=== PATIENT | male | born 1945 | race Caucasian/White ===

== ENCOUNTER 2016-10-09 00:55 | Emergency (ER) | payer BC, MEDICARE ==
[~2016-10-09 00:55] MED LIST: /GLIM2TA; ACTO15TA; ALTA10CA; ALTA1CAP4 PO; ASPI1TAB PO; ASPI325T; ATOR40TA75 PO; BYST10TA2 PO; BYSTOLIC; CALC500C16 PO; CLOP75TA2 PO; DILT240C PO; FISH1000 PO; GLIM2TA PO; GLUC1000; INSUH10VL SC; INSULADS SC; METF500T13 PO; PRIL40CA PO; SIMV40TA2 PO; SIMV80TA; SUCR1SS PO; VITMTA PO; [UNRECOGNIZED DRUG - OTHER]
[2016-10-09 01:44] LABS: BASO % 0.4 % (0.0-1.0); EOS # 0.3 K/mm3 (0.0-0.50); LARGE UNSTAINED CELL # 0.2 K/mm3 (0.0-0.4); LARGE UNSTAINED CELL % 2.1 % (0.0-4.0); LYMPH # 1.8 K/mm3 (1.5-4.5); LYMPH % 23.6 % (24.0-44.0); MEAN CORPUSCULAR HEMOGLOBIN 32.2 pg (27.0-33.0); MEAN CORPUSCULAR HGB CONC 34.8 g/dl (32.0-36.5); MEAN CORPUSCULAR VOLUME 92.6 fl (80.0-96.0); MONO # 0.5 K/mm3 (0.0-0.8); MONO % 6.9 % (0.0-5.0); NEUTROPHILS # 4.7 K/mm3 (1.8-7.7); NEUTROPHILS % 63.1 % (36.0-66.0); PLATELET COUNT, AUTOMATED 224 k/mm3 (150-450); RED CELL DISTRIBUTION WIDTH 13.6 % (11.5-14.5); WHITE BLOOD COUNT 7.4 K/mm3 (4.0-10.0)
[2016-10-09 01:53] LABS: INR 0.91
--- NOTE | 2016-10-09 02:03 | REP ---
Clinical: Chest pain . Comparison: 12/27/2014 . Findings: The mediastinum and cardiac silhouette are stable and within normal limits for portable technique. The lung [place] are clear without acute consolidation, effusion, or pneumothorax. Skeletal structures are intact. Impression: No acute cardiopulmonary process appreciated. Signed by Juan Carpenter MD 10/09/2016 01:54 A
[2016-10-09 02:10] LABS: ALBUMIN 3.4 GM/DL (3.2-5.2); ALBUMIN/GLOBULIN RATIO 0.92 (1.00-1.93); ALKALINE PHOSPHATASE 56 U/L (45-117); ALT/SGPT 29 U/L (12-78); ANION GAP 8 MEQ/L (8-16); BILIRUBIN,DIRECT 0.1 MG/DL (0.0-0.2); BILIRUBIN,TOTAL 0.5 MG/DL (0.2-1.0); BLOOD UREA NITROGEN 22 MG/DL (7-18); CALCIUM LEVEL 8.9 MG/DL (8.8-10.2); CARBON DIOXIDE LEVEL 25 MEQ/L (21-32); CHLORIDE LEVEL 107 MEQ/L (98-107); CREATININE FOR GFR 1.21 MG/DL (0.70-1.30); GLOMERULAR FILTRATION RATE > 60.0 (>42); GLUCOSE, FASTING 213 MG/DL (83-110); POTASSIUM SERUM 4.1 MEQ/L (3.5-5.1); SODIUM LEVEL 140 MEQ/L (136-145); TOTAL PROTEIN 7.1 GM/DL (6.4-8.2)
[2016-10-09 02:42] LABS: AST/SGOT 13 U/L (15-37)
[2016-10-09] MEDS ORDERED: ASPIRIN 325 MG TAB PO ONE (02:45)
[2016-10-09 05:41] VITALS: BP 168/74
[2016-10-09] MEDS ORDERED: ASPI81TA85 PO (06:24)
--- NOTE | 2016-10-09 11:25 | ECGEPIP ---
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
--- NOTE | 2016-10-09 11:27 | ECGEPIP ---
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
[2016-10-24] MEDS ORDERED: CART240C3 PO (10:30)
[2016-10-24] MEDS ORDERED: OMEP40CA2 PO (10:30)
[2016-10-24] MEDS ORDERED: ASPI81TA18 PO (10:30)
[2016-10-24] MEDS ORDERED: CLOP75TA2 PO (10:30)
== END 2016-10-09 06:39 | disposition home or self-care (01) ==
LOC: M ED 00:55
DX: R07.89 Other chest pain (principal); I25.10 Atherosclerotic heart disease of native coronary artery without angina pectoris; E11.9 Type 2 diabetes mellitus without complications; I10 Essential (primary) hypertension; E78.5 Hyperlipidemia, unspecified; K21.9 Gastro-esophageal reflux disease without esophagitis; Z95.1 Presence of aortocoronary bypass graft; Z98.61 Coronary angioplasty status; Z87.891 Personal history of nicotine dependence; Z79.82 Long term (current) use of aspirin; Z79.899 Other long term (current) drug therapy; Z79.84 Long term (current) use of oral hypoglycemic drugs; Z79.4 Long term (current) use of insulin

== ENCOUNTER 2016-10-21 10:52 | Emergency (ER) | payer BC, MEDICARE ==
[~2016-10-21] VITALS: Ht 175.3 cm; Wt 87.9 kg
[~2016-10-21 10:52] MED LIST changes: +ASPI81TA85 PO
[2016-10-21 10:53] VITALS: BP 151/67
[2016-10-21] MEDS ORDERED: TRES1INJ SC (11:01)
[2016-10-21] MEDS ORDERED: CEPHALEXIN 500 MG CAP PO ONE (11:15)
[2016-10-21] MEDS ORDERED: cefTRIAXone SOD 1 GM VIAL (J0696) IM ONE (11:15)
[2016-10-21] MEDS ORDERED: ADACEL/BOOSTRIX VACCINE (DIPHTH/PERTUSS/ACELL/TETANUS)0.5ML SYR (90715) IM ONE (11:15)
[2016-10-21] MEDS ORDERED: LIDOCAINE 1% MDV 20ML VIAL As Ordered ONE (11:21)
[2016-10-21] MEDS ORDERED: BACITRACIN OINT 30GM TOP ONE (11:30)
[2016-10-21] MEDS ORDERED: AUGM875T28 PO (11:32)
[2016-10-24] MEDS ORDERED: ASPI81TA18 PO (10:30)
[2016-10-24] MEDS ORDERED: OMEP40CA2 PO (10:30)
[2016-10-24] MEDS ORDERED: CART240C3 PO (10:30)
[2016-10-24] MEDS ORDERED: CLOP75TA2 PO (10:30)
== END 2016-10-21 12:39 | disposition home or self-care (01) ==
LOC: M ED 10:52
DX: S81.831A Puncture wound without foreign body, right lower leg, initial encounter (principal); S81.832A Puncture wound without foreign body, left lower leg, initial encounter; S31.139A Puncture wound of abdominal wall without foreign body, unspecified quadrant without penetration into peritoneal cavity, initial encounter; S80.11XA Contusion of right lower leg, initial encounter; S80.811A Abrasion, right lower leg, initial encounter; S80.812A Abrasion, left lower leg, initial encounter; S81.851A Open bite, right lower leg, initial encounter; S81.852A Open bite, left lower leg, initial encounter; W55.01XA Bitten by cat, initial encounter; Y92.099 Unspecified place in other non-institutional residence as the place of occurrence of the external cause; Y93.9 Activity, unspecified; Y99.9 Unspecified external cause status; E11.9 Type 2 diabetes mellitus without complications; I10 Essential (primary) hypertension; Z87.891 Personal history of nicotine dependence; Z79.02 Long term (current) use of antithrombotics/antiplatelets; Z79.82 Long term (current) use of aspirin; Z79.4 Long term (current) use of insulin; Z79.899 Other long term (current) drug therapy
CPT/HCPCS: 90471; 90715; 96372; 99282; J0696

== ENCOUNTER 2016-10-27 09:23 | Day surgery (SDC) | payer BC ==
[~2016-10-27] VITALS: Ht 175.3 cm; Wt 89.8 kg
[~2016-10-27 09:23] MED LIST changes: +ACETAMINOPHEN 325 MG TAB PO PRN; +ASPI81TA18 PO; +AUGM875T28 PO; +BSS with VANC/TOB/EPI for EYE CASES IR ONE; +CART240C3 PO; +CYCLOPENTOLATE 2% OPHTH SOLN 2ML BTL OD ONE; +HEALON DUET (HEALON 10MG/ML 0.55ML & HEALON ENDOCOAT 30MG/ML 0.85ML) As Ordered ONE; +LIDOCAINE 1% SDV 5 ML VIAL As Ordered ONE; +LIDOCAINE 3.5 % 1ML OPHTH TOPICAL GEL OU ONE; +MIDAZOLAM INJ 2 MG/2 ML VIAL (J2250) As Ordered ONE; +MOXIFLOXACIN IN BSS 0.25MG/0.25ML INTRACAMERAL INJ (OR EYE ONLY)(J2280) As Ordered ONE; +OFLOXACIN 0.3 % (OCUFLOX) OPTH SOL 5ML OD ONE; +OMEP40CA2 PO; +PHENYLEPHRINE 2.5% OPHTH SOL 2ML OD ONE; +POVIDONE-IODINE 5% OPHTH PREP SOL 30ML As Ordered ONE; +PROPARACAINE 0.5% OPHTH SOL 15ML OD PRN; +TRES1INJ SC; +TRIAMCINOLONE PRES FR 40 MG/ML 1ML(TRIESENCE)(OR EYE ONLY)(J3300 PER 1MG) As Ordered ONE; +TROPICAMIDE 1% OPHTH SOLN 2ML OD ONE
[2016-10-27] MEDS ORDERED: D5W/0.2% SODIUM CHLORIDE 250 ML IV ONE (09:45)
[2016-10-27] MEDS ORDERED: ASPIRIN 81 MG CHEW TABLET As Ordered ONE (10:07)
[2016-10-27] MEDS ORDERED: ASPIRIN 81 MG CHEW TABLET PO ONE (10:15)
[2016-10-27 12:25] VITALS: BP 143/65
[2016-10-27] MEDS ORDERED: TRIMETHOBENZAMIDE 300 MG CAP PO PRN (12:30)
[2016-10-27] MEDS ORDERED: AcetaZOLAMIDE 500 MG ER CAP PO ONE (12:30)
[2016-10-27] MEDS ORDERED: KETOROLAC 0.5% OPHTH SOLN OD ONE (12:30)
== END 2016-10-27 12:45 | disposition home or self-care (01) ==
LOC: M SDC 09:23
PROVIDERS: ATTEND Ophthalmology
DX: H25.11 Age-related nuclear cataract, right eye (principal); I25.10 Atherosclerotic heart disease of native coronary artery without angina pectoris; E11.9 Type 2 diabetes mellitus without complications; Z79.4 Long term (current) use of insulin; K21.9 Gastro-esophageal reflux disease without esophagitis; Z79.82 Long term (current) use of aspirin; Z79.899 Other long term (current) drug therapy; Z87.891 Personal history of nicotine dependence
CPT/HCPCS: 66984; J2250; J2280; J3300

== ENCOUNTER 2016-12-03 06:29 | Day surgery (SDC) | payer BC ==
[~2016-12-03] VITALS: Ht 175.3 cm; Wt 88.5 kg
[~2016-12-03 06:29] MED LIST changes: -ACETAMINOPHEN 325 MG TAB PO PRN; -BSS with VANC/TOB/EPI for EYE CASES IR ONE; -CYCLOPENTOLATE 2% OPHTH SOLN 2ML BTL OD ONE; -HEALON DUET (HEALON 10MG/ML 0.55ML & HEALON ENDOCOAT 30MG/ML 0.85ML) As Ordered ONE; -LIDOCAINE 1% SDV 5 ML VIAL As Ordered ONE; -LIDOCAINE 3.5 % 1ML OPHTH TOPICAL GEL OU ONE; -MIDAZOLAM INJ 2 MG/2 ML VIAL (J2250) As Ordered ONE; -MOXIFLOXACIN IN BSS 0.25MG/0.25ML INTRACAMERAL INJ (OR EYE ONLY)(J2280) As Ordered ONE; -OFLOXACIN 0.3 % (OCUFLOX) OPTH SOL 5ML OD ONE; -PHENYLEPHRINE 2.5% OPHTH SOL 2ML OD ONE; -POVIDONE-IODINE 5% OPHTH PREP SOL 30ML As Ordered ONE; -PROPARACAINE 0.5% OPHTH SOL 15ML OD PRN; -TRIAMCINOLONE PRES FR 40 MG/ML 1ML(TRIESENCE)(OR EYE ONLY)(J3300 PER 1MG) As Ordered ONE; -TROPICAMIDE 1% OPHTH SOLN 2ML OD ONE
[2016-12-03] MEDS ORDERED: TRIAMCINOLONE PRES FR 40 MG/ML 1ML(TRIESENCE)(OR EYE ONLY)(J3300 PER 1MG) As Ordered ONE (06:38)
[2016-12-03] MEDS ORDERED: POVIDONE-IODINE 5% OPHTH PREP SOL 30ML As Ordered ONE (06:38)
[2016-12-03] MEDS ORDERED: MOXIFLOXACIN IN BSS 0.25MG/0.25ML INTRACAMERAL INJ (OR EYE ONLY)(J2280) As Ordered ONE (06:39)
[2016-12-03] MEDS ORDERED: HEALON DUET (HEALON 10MG/ML 0.55ML & HEALON ENDOCOAT 30MG/ML 0.85ML) As Ordered ONE (06:39)
[2016-12-03] MEDS ORDERED: LIDOCAINE 1% SDV 5 ML VIAL As Ordered ONE (06:39)
[2016-12-03] MEDS ORDERED: LR 500 ML IV ONE (06:45)
[2016-12-03] MEDS ORDERED: LIDOCAINE 2% W/EPIN INJ 20ML **PRES FREE As Ordered ONE (06:59)
[2016-12-03] MEDS ORDERED: OFLOXACIN 0.3 % (OCUFLOX) OPTH SOL 5ML XX ONE (07:00)
[2016-12-03] MEDS ORDERED: CYCLOPENTOLATE 2% OPHTH SOLN 2ML BTL XX ONE (07:00)
[2016-12-03] MEDS ORDERED: TROPICAMIDE 1% OPHTH SOLN 2ML XX ONE (07:00)
[2016-12-03] MEDS ORDERED: BSS with VANC/TOB/EPI for EYE CASES IR ONE (07:00)
[2016-12-03] MEDS ORDERED: PHENYLEPHRINE 2.5% OPHTH SOL 2ML XX ONE (07:00)
[2016-12-03] MEDS ORDERED: LIDOCAINE 3.5 % 1ML OPHTH TOPICAL GEL OU ONE (07:00)
[2016-12-03] MEDS ORDERED: fentaNYL 100 MCG/2 ML INJECTION (J3010) As Ordered ONE (07:08)
[2016-12-03] MEDS ORDERED: MIDAZOLAM INJ 2 MG/2 ML VIAL (J2250) As Ordered ONE (07:08)
[2016-12-03 08:15] VITALS: BP 136/62
== END 2016-12-03 08:25 | disposition home or self-care (01) ==
LOC: M SDC 06:29
PROVIDERS: ATTEND Ophthalmology
DX: H25.9 Unspecified age-related cataract (principal); I25.10 Atherosclerotic heart disease of native coronary artery without angina pectoris; I25.2 Old myocardial infarction; E10.9 Type 1 diabetes mellitus without complications; Z79.4 Long term (current) use of insulin; Z79.82 Long term (current) use of aspirin; I10 Essential (primary) hypertension; E78.5 Hyperlipidemia, unspecified; K21.9 Gastro-esophageal reflux disease without esophagitis; Z79.899 Other long term (current) drug therapy
CPT/HCPCS: 66984; J2250; J2280; J3010; J3300

== ENCOUNTER → 2017-12-25 | Outpatient (CLI) | payer BC | LOC: M RAD 16:24 | DX: I65.23 Occlusion and stenosis of bilateral carotid arteries (principal); R09.89 Other specified symptoms and signs involving the circulatory and respiratory systems | CPT/HCPCS: 93880 ==

== ENCOUNTER → 2018-03-10 | Outpatient (CLI) | payer BC ==
[~2018-03-10] MED LIST changes: -ASPI81TA18 PO; +ASPI81TA52 PO; -DILT240C PO; +DILT240C47 PO; +PROHANCE 279.3MG/ML 15ML VIAL (A9576) As Ordered ONE; +PROHANCE 279.3MG/ML 5ML VIAL (A9576) As Ordered ONE
--- NOTE | 2018-03-10 14:56 | REP ---
MR ANGIOGRAPHY OF THE CAROTIDS WITHOUT AND WITH IV GADOLINIUM: HISTORY: Carotid stenosis. Carotid sonography December 25, 2017 showed approximately 70% narrowing on the left and less than 50% narrowing on the right. TECHNIQUE: 3D [id number] and 2D postcontrast MR angiography acquired. Maximal intensity projection images and source images are reviewed. MRA ANGIOGRAPHY FINDINGS: The left vertebral artery appears to take a direct aortic origin although it is very proximal most segment is not well seen. I cannot exclude an origin stenosis for the left vertebral artery. Great vessel origins are otherwise unremarkable. The vertebral arteries are patent in their cervical segments and symmetric. The common carotid arteries are unremarkable bilaterally. There is bilateral carotid bulb plaquing. There is less than 50% narrowing of the proximal ICA on the right. There is more impressive proximal ICA narrowing on the left, with an elongate segment of narrowing 50-75%. The distal ICA is unremarkable on both sides. IMPRESSION: Up to 75% narrowing in the proximal ICA on the left with an elongate narrowed ICA segment on the left. Less than 50% narrowing of the ICA on the right. The proximal vertebral on the left may take a direct aortic origin. This segment of the left vertebral artery is not well seen and I cannot exclude an origin stenosis for the left vertebral artery. Electronically Signed by Huey Delgado MD 03/10/2018 03:14 P
== END ==
LOC: M RAD 13:18
PROVIDERS: ATTEND Physician Assistant Medical
DX: I65.23 Occlusion and stenosis of bilateral carotid arteries (principal)
CPT/HCPCS: 70549; A9576

== ENCOUNTER 2022-11-12 20:31 | Emergency (ER) | payer BC, MEDICARE, OTHER ==
[~2022-11-12] VITALS: Ht 175.3 cm; Wt 90.9 kg
[~2022-11-12 20:31] MED LIST changes: -/GLIM2TA; +AMAR1TAB5; -ASPI1TAB PO; +ASPI81TA26 PO; -ASPI81TA85 PO; +ASPI81TA86 PO; -GLIM2TA PO; +GLIM2TAB29 PO; -OMEP40CA2 PO; +OMEP40CA4 PO; -PROHANCE 279.3MG/ML 15ML VIAL (A9576) As Ordered ONE; -PROHANCE 279.3MG/ML 5ML VIAL (A9576) As Ordered ONE; -SIMV40TA2 PO; +SIMV40TA20 PO
[2022-11-12] MEDS ORDERED: ASPIRIN 81MG CHEW TABLET PO ONE (21:00)
[2022-11-12] MEDS ORDERED: NITROGLYCERIN 0.4MG SUBL TABLET SL PRN (21:00)
[2022-11-12 21:31] LABS: CK-MB VALUE MASS 6.1 NG/ML (<3.6)
[2022-11-12 21:32] LABS: BLOOD UREA NITROGEN 41 MG/DL (9-23); CARBON DIOXIDE LEVEL 19 MMOL/L (20-31); CHLORIDE LEVEL 101 MMOL/L (98-107); CREATININE FOR GFR 1.23 MG/DL (0.70-1.30); GLOMERULAR FILTRATION RATE > 60.0 (>42); GLUCOSE, FASTING 192 MG/DL (74-106); POTASSIUM SERUM 4.4 MMOL/L (3.5-5.1); SODIUM LEVEL 134 MMOL/L (136-145)
[2022-11-12 21:35] LABS: CPK CREATINE PHOSPHOKINASE 187 U/L (46-171); MB/CK RELATIVE INDEX 3.26 (< OR =4)
[2022-11-12 21:47] LABS: BASO % 0.1 % (0.0-1.0); EOS % 0.1 % (0.0-3.0); HEMATOCRIT 37.1 % (42.0-52.0); HEMOGLOBIN 12.6 g/dl (13.5-17.5); LYMPH # 1.2 10^3/uL (1.5-5.0); MEAN CORPUSCULAR HEMOGLOBIN 31.6 pg (27.0-33.0); MONO % 5.1 % (2.0-8.0); NEUTROPHILS # 17.7 10^3/uL (1.5-8.5); NEUTROPHILS % 88.1 % (36.0-66.0); PLATELET COUNT, AUTOMATED 332 10^3/uL (150-450); RED BLOOD COUNT 3.99 10^6/uL (4.30-6.10); WHITE BLOOD COUNT 20.1 10^3/uL (4.0-10.0)
[2022-11-12] MEDS ORDERED: HEPARIN DRIP 25,000 UNITS in IV 1 EA IV SCH (22:00)
[2022-11-12] MEDS ORDERED: HEPARIN SOD (PORCINE) 5000UNITS/ML 1ML VIAL/SYRINGE IV ONE (22:00)
[2022-11-12 22:14] LABS: CK-MB VALUE MASS 6.3 NG/ML (<3.6)
[2022-11-12 22:24] LABS: MB/CK RELATIVE INDEX 3.46 (< OR =4)
[2022-11-12 22:29] LABS: RSV AMPLIFICATION NEGATIVE (NEGATIVE)
[2022-11-12 22:31] VITALS: BP 164/74; TEMP 98; O2SAT 96
== END 2022-11-12 22:55 | disposition short-term general hospital (02) ==
LOC: M ED 20:31
DX: I21.3 ST elevation (STEMI) myocardial infarction of unspecified site (principal); I25.10 Atherosclerotic heart disease of native coronary artery without angina pectoris; E11.9 Type 2 diabetes mellitus without complications; I10 Essential (primary) hypertension; E78.5 Hyperlipidemia, unspecified; Z95.5 Presence of coronary angioplasty implant and graft; Z79.4 Long term (current) use of insulin; Z79.82 Long term (current) use of aspirin; Z79.899 Other long term (current) drug therapy

== ENCOUNTER 2022-12-01 12:13 | Emergency (ER) | payer MEDICARE, OTHER ==
[~2022-12-01] VITALS: Ht 175.3 cm; Wt 77.3 kg
[2022-12-01 12:15] VITALS: TEMP 97.5
[2022-12-01 14:04] LABS: BASO % 0.2 % (0.0-1.0); EOS # 0.5 10^3/uL (0.0-0.5); EOS % 4.3 % (0.0-3.0); HEMATOCRIT 31.6 % (42.0-52.0); HEMOGLOBIN 10.7 g/dl (13.5-17.5); LYMPH # 0.8 10^3/uL (1.5-5.0); LYMPH % 6.6 % (24.0-44.0); MEAN CORPUSCULAR HGB CONC 33.9 g/dl (32.0-36.5); MEAN CORPUSCULAR VOLUME 94.6 fl (80.0-96.0); MONO # 0.8 10^3/uL (0.0-0.8); MONO % 6.3 % (2.0-8.0); NEUTROPHILS % 81.9 % (36.0-66.0); PLATELET COUNT, AUTOMATED 541 10^3/uL (150-450); RED BLOOD COUNT 3.34 10^6/uL (4.30-6.10); WHITE BLOOD COUNT 12.2 10^3/uL (4.0-10.0)
[2022-12-01 14:17] LABS: RSV AMPLIFICATION NEGATIVE (NEGATIVE)
[2022-12-01 14:21] LABS: INR 1.14; PARTIAL THROMBOPLASTIN TIME 22.4 SECONDS (24.8-34.2); PROTHROMBIN TIME 14.3 SECONDS (12.5-14.5)
[2022-12-01 14:36] LABS: ALBUMIN 2.6 G/DL (3.2-5.2); ALKALINE PHOSPHATASE 57 U/L (46-116); ALT/SGPT 41 U/L (7.0-40); AST/SGOT 29 U/L (<34); BILIRUBIN,DIRECT 0.2 MG/DL (<0.4); BILIRUBIN,TOTAL 0.8 MG/DL (0.3-1.2); BLOOD UREA NITROGEN 22 MG/DL (9-23); CALCIUM LEVEL 8.8 MG/DL (8.3-10.6); CARBON DIOXIDE LEVEL 24 MMOL/L (20-31); CHLORIDE LEVEL 99 MMOL/L (98-107); CREATININE FOR GFR 1.17 MG/DL (0.70-1.30); GLOMERULAR FILTRATION RATE > 60.0 (>42); GLUCOSE, FASTING 237 MG/DL (74-106); POTASSIUM SERUM 4.2 MMOL/L (3.5-5.1); SODIUM LEVEL 135 MMOL/L (136-145); TOTAL PROTEIN 6.5 G/DL (5.7-8.2)
[2022-12-01 15:38] LABS: APPEARANCE, URINE CLEAR (CLEAR); BACTERIA, URINE AUTO NEGATIVE (NEGATIVE); BILIRUBIN, URINE AUTO NEGATIVE (NEGATIVE); BLOOD, URINE BLOOD NEGATIVE (NEGATIVE); COLOR, URINE YELLOW (YELLOW); GLUCOSE, URINE (UA) AUTO 3+ mg/dL (NEGATIVE); KETONE, URINE AUTO NEGATIVE (NEGATIVE); LEUKOCYTE ESTERASE, URINE AUTO NEGATIVE (NEGATIVE); NITRITE, URINE AUTO NEGATIVE (NEGATIVE); PROTEIN, URINE AUTO NEGATIVE (NEGATIVE); RBC, URINE AUTO 0 /HPF (0-3); SPECIFIC GRAVITY URINE AUTO 1.017 (1.002-1.035); SQUAMOUS EPITHELIAL CELL UR AU 0 /HPF (0-6); UROBILINOGEN, URINE AUTO 0.2 mg/dL (0.0-2.0); WBC, URINE AUTO 0 /HPF (0-3)
[2022-12-01 19:00] VITALS: BP 136/65; O2SAT 97
== END 2022-12-01 19:11 | disposition home or self-care (01) ==
LOC: M ED 12:13
DX: R55 Syncope and collapse (principal); I31.39 Other pericardial effusion (noninflammatory); I45.81 Long QT syndrome; I25.2 Old myocardial infarction; I10 Essential (primary) hypertension; F10.10 Alcohol abuse, uncomplicated; E11.9 Type 2 diabetes mellitus without complications; Z86.79 Personal history of other diseases of the circulatory system; Z79.82 Long term (current) use of aspirin; Z79.4 Long term (current) use of insulin; Z79.899 Other long term (current) drug therapy

== ENCOUNTER 2023-09-09 11:33 | Emergency (ER) | payer OTHER ==
[~2023-09-09] VITALS: Ht 175.3 cm; Wt 84.1 kg
[2023-09-09 11:34] VITALS: TEMP 97.1
[2023-09-09] MEDS: CETIRIZINE (ZyrTEC) 10 MG TAB PO ONE (14:15)
[2023-09-09] MEDS: FAMOTIDINE 20 MG TAB PO ONE (14:15)
[2023-09-09 14:37] LABS: HEMATOCRIT 41.1 % (42.0-52.0); HEMOGLOBIN 13.2 g/dl (13.5-17.5); MEAN CORPUSCULAR HGB CONC 32.1 g/dl (32.0-36.5); MEAN CORPUSCULAR VOLUME 93.4 fl (80.0-96.0); PLATELET COUNT, AUTOMATED 256 10^3/uL (150-450)
[2023-09-09 14:43] LABS: ERYTHROCYTE SEDIMENTATION RATE 50 mm/hr (0-20)
[2023-09-09 14:52] LABS: BLOOD UREA NITROGEN 12 MG/DL (9-23); CALCIUM LEVEL 9.5 MG/DL (8.3-10.6); CARBON DIOXIDE LEVEL 26 MMOL/L (20-31); CHLORIDE LEVEL 109 MMOL/L (98-107); CREATININE FOR GFR 0.96 MG/DL (0.70-1.30); GLOMERULAR FILTRATION RATE > 60.0 (>42); GLUCOSE, FASTING 79 MG/DL (74-106); POTASSIUM SERUM 4.5 MMOL/L (3.5-5.1); SODIUM LEVEL 140 MMOL/L (136-145)
[2023-09-09] MEDS ORDERED: CEPH500C PO (15:00)
[2023-09-09] MEDS ORDERED: EPIP0.3I2 IM (15:01)
[2023-09-09 15:10] VITALS: BP 178/76; O2SAT 99
== END 2023-09-09 15:11 | disposition home or self-care (01) ==
LOC: M ED 11:33
DX: T63.441A Toxic effect of venom of bees, accidental (unintentional), initial encounter (principal); E11.9 Type 2 diabetes mellitus without complications; I10 Essential (primary) hypertension; E78.5 Hyperlipidemia, unspecified; I25.2 Old myocardial infarction; Z86.79 Personal history of other diseases of the circulatory system; Z79.84 Long term (current) use of oral hypoglycemic drugs; Z79.4 Long term (current) use of insulin; Z87.891 Personal history of nicotine dependence; Z79.82 Long term (current) use of aspirin; Z79.899 Other long term (current) drug therapy

== ENCOUNTER → 2023-12-25 | Outpatient (CLI) | payer MEDICARE, OTHER ==
[~2023-12-25] MED LIST changes: -BYST10TA2 PO; +BYST1TAB3 PO; +CEPH500C PO; +EPIP0.3I2 IM
== END ==
LOC: M RAD 11:50
PROVIDERS: ATTEND Physician Assistant
DX: I65.23 Occlusion and stenosis of bilateral carotid arteries (principal)

== ENCOUNTER → 2024-01-04 | Outpatient (CLI) | payer MEDICARE, OTHER ==
[~2024-01-04] MED LIST changes: +ACET-897 PO; +ALTA1CAP3 PO; +HYDR25TA88 PO; +LOPR1TAB6 PO; +METO25TA4 PO; +METO37.5 PO
[2024-01-04 13:03] LABS: BASO % 0.4 % (0.0-1.0); EOS # 0.3 10^3/uL (0.0-0.5); EOS % 3.7 % (0.0-3.0); HEMATOCRIT 41.7 % (42.0-52.0); HEMOGLOBIN 13.6 g/dl (13.5-17.5); LYMPH # 1.4 10^3/uL (1.5-5.0); LYMPH % 18.4 % (24.0-44.0); MEAN CORPUSCULAR HEMOGLOBIN 30.9 pg (27.0-33.0); MEAN CORPUSCULAR HGB CONC 32.6 g/dl (32.0-36.5); MEAN CORPUSCULAR VOLUME 94.8 fl (80.0-96.0); MONO # 0.8 10^3/uL (0.0-0.8); MONO % 10.7 % (2.0-8.0); NEUTROPHILS # 4.9 10^3/uL (1.5-8.5); NEUTROPHILS % 66.5 % (36.0-66.0); PLATELET COUNT, AUTOMATED 234 10^3/uL (150-450); WHITE BLOOD COUNT 7.3 10^3/uL (4.0-10.0)
[2024-01-04 13:14] LABS: INR 0.99; PROTHROMBIN TIME 12.8 SECONDS (12.5-14.5)
[2024-01-04 13:31] LABS: HEMOGLOBIN A1c 6.8 % (4.0-6.0)
[2024-01-04 13:34] LABS: ALBUMIN 3.7 G/DL (3.2-5.2); ALKALINE PHOSPHATASE 48 U/L (46-116); ALT/SGPT 30 U/L (7.0-40); AST/SGOT 23 U/L (<34); BILIRUBIN,TOTAL 0.9 MG/DL (0.3-1.2); BLOOD UREA NITROGEN 18 MG/DL (9-23); CALCIUM LEVEL 10.3 MG/DL (8.3-10.6); CARBON DIOXIDE LEVEL 25 MMOL/L (20-31); CHLORIDE LEVEL 109 MMOL/L (98-107); CREATININE FOR GFR 1.01 MG/DL (0.70-1.30); GLOMERULAR FILTRATION RATE > 60.0 (>42); GLUCOSE, FASTING 110 MG/DL (74-106); POTASSIUM SERUM 4.8 MMOL/L (3.5-5.1); SODIUM LEVEL 141 MMOL/L (136-145); TOTAL PROTEIN 7.5 G/DL (5.7-8.2)
== END ==
LOC: M PLALAB 10:51
PROVIDERS: ATTEND Orthopaedic Surgery
DX: G56.02 Carpal tunnel syndrome, left upper limb (principal); Z79.899 Other long term (current) drug therapy

== ENCOUNTER 2024-01-07 16:07 | Observation (INO) | payer OTHER ==
[~2024-01-07] VITALS: Ht 175.3 cm; Wt 80.6 kg
[~2024-01-07 16:07] MED LIST changes: -ACET-897 PO; -ALTA1CAP3 PO; -HYDR25TA88 PO; -LOPR1TAB6 PO; -METO25TA4 PO; -METO37.5 PO
[2024-01-07] MEDS ORDERED: ALTA1CAP3 PO (16:25)
[2024-01-07] MEDS ORDERED: METO37.5 PO (16:28)
[2024-01-07] MEDS: LABETALOL 100MG/20ML VIAL IV STA (16:51)
[2024-01-07 17:04] LABS: BASO % 0.4 % (0.0-1.0); EOS # 0.3 10^3/uL (0.0-0.5); EOS % 3.2 % (0.0-3.0); HEMATOCRIT 41.8 % (42.0-52.0); HEMOGLOBIN 13.9 g/dl (13.5-17.5); LYMPH # 1.3 10^3/uL (1.5-5.0); LYMPH % 15.9 % (24.0-44.0); MEAN CORPUSCULAR HEMOGLOBIN 31.2 pg (27.0-33.0); MEAN CORPUSCULAR HGB CONC 33.3 g/dl (32.0-36.5); MEAN CORPUSCULAR VOLUME 93.9 fl (80.0-96.0); MONO # 0.8 10^3/uL (0.0-0.8); NEUTROPHILS # 5.7 10^3/uL (1.5-8.5); NEUTROPHILS % 70.3 % (36.0-66.0); PLATELET COUNT, AUTOMATED 248 10^3/uL (150-450); RED BLOOD COUNT 4.45 10^6/uL (4.30-6.10); WHITE BLOOD COUNT 8.2 10^3/uL (4.0-10.0)
[2024-01-07 17:33] LABS: ALBUMIN 3.9 G/DL (3.2-5.2); ALKALINE PHOSPHATASE 48 U/L (46-116); ALT/SGPT 24 U/L (7.0-40); AST/SGOT 25 U/L (<34); BILIRUBIN,DIRECT 0.3 MG/DL (<0.4); BLOOD UREA NITROGEN 19 MG/DL (9-23); CALCIUM LEVEL 9.6 MG/DL (8.3-10.6); CARBON DIOXIDE LEVEL 25 MMOL/L (20-31); CHLORIDE LEVEL 107 MMOL/L (98-107); CK-MB VALUE MASS < 1.0 NG/ML (<3.6); CREATININE FOR GFR 0.96 MG/DL (0.70-1.30); GLOMERULAR FILTRATION RATE > 60.0 (>42); GLUCOSE, FASTING 114 MG/DL (74-106); POTASSIUM SERUM 4.8 MMOL/L (3.5-5.1); SODIUM LEVEL 138 MMOL/L (136-145); TOTAL PROTEIN 7.5 G/DL (5.7-8.2)
[2024-01-07 17:36] LABS: CPK CREATINE PHOSPHOKINASE 109 U/L (46-171); MB/CK RELATIVE INDEX 0.91 (< OR =4)
[2024-01-07] MEDS ORDERED: METO25TA4 PO (17:58)
[2024-01-07] MEDS ORDERED: HOME MED LIST COMPLETE! XX SCH (18:00)
[2024-01-07] MEDS: **hydrALAZINE HCL** 25 MG TAB PO SCH (19:11)
[2024-01-07] MEDS: INSULIN LISPRO (NovoLOG) PER UNIT SC SCH (19:12)
[2024-01-07 21:08] VITALS: BP 153/66; TEMP 97.8; O2SAT 95
[2024-01-07] MEDS: METOPROLOL TART 25 MG TABLET PO SCH (21:37)
[2024-01-07] MEDS: ramipriL 5 MG CAP PO SCH (21:37)
[2024-01-08 03:49] VITALS: BP 176/81; TEMP 98.1; O2SAT 97
[2024-01-08] MEDS: amLODIPine 5 MG TAB PO STA (04:21)
[2024-01-08 05:11] VITALS: BP 168/78
[2024-01-08 05:12] VITALS: BP 168/78
[2024-01-08 07:40] VITALS: BP 124/58; TEMP 97.4; O2SAT 97
[2024-01-08] MEDS: METOPROLOL TART 50 MG TAB PO SCH (08:24)
[2024-01-08] MEDS: SIMVASTATIN 40 MG TAB PO SCH (08:24)
[2024-01-08] MEDS: ASPIRIN 81MG ENTERIC TABLET PO SCH (08:25)
[2024-01-08] MEDS: OMEPRAZOLE 20MG CAP PO SCH (08:25)
[2024-01-08] MEDS ORDERED: ALTA1CAP3 PO (10:19)
[2024-01-08] MEDS ORDERED: LOPR1TAB6 PO (10:19)
[2024-01-08] MEDS ORDERED: HYDR25TA88 PO (10:25)
[2024-01-08] MEDS ORDERED: ACET-897 PO (10:25)
[2024-01-08 11:04] VITALS: BP 145/65
[2024-01-08] MEDS ORDERED: amLODIPine 5 MG TAB PO SCH (21:00)
== END 2024-01-08 12:07 | disposition home or self-care (01) ==
LOC: M ED 16:07 → M ED INP 16:08 → M PCU 21:23
PROVIDERS: ADMIT Internal Medicine Nephrology; ATTEND Internal Medicine Nephrology
DX: I16.0 Hypertensive urgency (principal); I25.10 Atherosclerotic heart disease of native coronary artery without angina pectoris; Z98.61 Coronary angioplasty status; I11.9 Hypertensive heart disease without heart failure; E11.319 Type 2 diabetes mellitus with unspecified diabetic retinopathy without macular edema; M16.12 Unilateral primary osteoarthritis, left hip; E78.00 Pure hypercholesterolemia, unspecified; K21.9 Gastro-esophageal reflux disease without esophagitis; K25.9 Gastric ulcer, unspecified as acute or chronic, without hemorrhage or perforation; M54.9 Dorsalgia, unspecified; I35.0 Nonrheumatic aortic (valve) stenosis; I35.1 Nonrheumatic aortic (valve) insufficiency; Z79.82 Long term (current) use of aspirin; Z79.84 Long term (current) use of oral hypoglycemic drugs; Z79.4 Long term (current) use of insulin; Z79.899 Other long term (current) drug therapy
CPT/HCPCS: 71046; 80048; 80076; 82550; 82553; 84484; 85025; 93005; 93041; 94760; 96374; 99285; G0378; J1815; J1920

== ENCOUNTER → 2024-01-19 | Day surgery (SDC) | payer OTHER ==
[~2024-01-19] VITALS: Ht 175.3 cm; Wt 82.5 kg
[~2024-01-19] MED LIST changes: +ACET-897 PO; +ALTA1CAP3 PO; +AMLO1TAB25 PO; +ATOR80TA59 PO; +HYDR25TA88 PO; +LOPR1TAB6 PO; +METO25TA4 PO; +METO37.5 PO; +NS 1,000 ML IV SCH; +SYNJ1TAB3 PO
[2024-01-19 09:54] VITALS: BP 169/77; TEMP 97.2; O2SAT 97
== END | disposition home or self-care (01) ==
LOC: M SDC 09:37
PROVIDERS: ATTEND Orthopaedic Surgery
DX: G56.03 Carpal tunnel syndrome, bilateral upper limbs (principal); Z53.09 Procedure and treatment not carried out because of other contraindication

== ENCOUNTER 2024-01-26 09:18 | Day surgery (SDC) | payer OTHER ==
[~2024-01-26] VITALS: Ht 175.3 cm; Wt 81.8 kg
[~2024-01-26 09:18] MED LIST changes: +KETOROLAC 60MG 2ML VIAL As Ordered ONE; +LIDOCAINE 2% 100MG/5ML SDV (FOR ANES.) As Ordered ONE; -NS 1,000 ML IV SCH; +ONDANSETRON 4MG 2ML VIAL As Ordered ONE; +propofoL 200 MG/20 ML VIAL As Ordered ONE
[2024-01-26] MEDS ORDERED: fentaNYL 100 MCG/2 ML INJECTION As Ordered ONE (09:57)
[2024-01-26] MEDS ORDERED: MIDAZOLAM INJ 2MG/2ML VIAL As Ordered ONE (09:57)
[2024-01-26] MEDS: ceFAZolin 1GM VIAL As Ordered ONE (11:16)
[2024-01-26] MEDS ORDERED: BACITRACIN OINTMENT 30GM TUBE As Ordered ONE (11:33)
[2024-01-26] MEDS ORDERED: ACETAMINOPHEN 1000MG 100ML IV BAG As Ordered ONE (11:40)
[2024-01-26] MEDS ORDERED: NS 1,000 ML IV SCH (11:45)
[2024-01-26 11:55] VITALS: BP 138/64; TEMP 96.8; O2SAT 95
== END 2024-01-26 12:50 | disposition home or self-care (01) ==
LOC: M SDC 09:18
PROVIDERS: ATTEND Orthopaedic Surgery
DX: G56.01 Carpal tunnel syndrome, right upper limb (principal); I10 Essential (primary) hypertension; E11.9 Type 2 diabetes mellitus without complications; I25.10 Atherosclerotic heart disease of native coronary artery without angina pectoris; Z98.61 Coronary angioplasty status; Z87.891 Personal history of nicotine dependence; Z79.82 Long term (current) use of aspirin; Z79.4 Long term (current) use of insulin; K21.9 Gastro-esophageal reflux disease without esophagitis; Z79.899 Other long term (current) drug therapy
CPT/HCPCS: 64721; J0131; J0665; J0690; J1885; J2250; J2405; J3010

== ENCOUNTER 2024-02-23 06:49 | Day surgery (SDC) | payer OTHER ==
[~2024-02-23] VITALS: Ht 175.3 cm; Wt 80.7 kg
[~2024-02-23 06:49] MED LIST changes: +HYDR25TA87 PO; -KETOROLAC 60MG 2ML VIAL As Ordered ONE; -LIDOCAINE 2% 100MG/5ML SDV (FOR ANES.) As Ordered ONE; +LOPR1TAB7 PO; -ONDANSETRON 4MG 2ML VIAL As Ordered ONE; -propofoL 200 MG/20 ML VIAL As Ordered ONE
[2024-02-23] MEDS ORDERED: LR 1,000 ML IV SCH (07:15)
[2024-02-23] MEDS ORDERED: ONDANSETRON 4MG 2ML VIAL As Ordered ONE (07:23)
[2024-02-23] MEDS ORDERED: fentaNYL 100 MCG/2 ML INJECTION As Ordered ONE (07:23)
[2024-02-23] MEDS ORDERED: LIDOCAINE 2% 100MG/5ML SDV (FOR ANES.) As Ordered ONE (07:23)
[2024-02-23] MEDS ORDERED: propofoL 200 MG/20 ML VIAL As Ordered ONE (07:23)
[2024-02-23] MEDS ORDERED: MIDAZOLAM INJ 2MG/2ML VIAL As Ordered ONE (07:24)
[2024-02-23] MEDS: ceFAZolin 2 GM/D5W 50 ML IV BAG As Ordered ONE (07:44)
[2024-02-23] MEDS: BACITRACIN OINTMENT 30GM TUBE As Ordered ONE (08:13)
[2024-02-23 08:54] VITALS: BP 132/73; TEMP 96.9; O2SAT 96
== END 2024-02-23 09:25 | disposition home or self-care (01) ==
LOC: M SDC 06:49
PROVIDERS: ATTEND Orthopaedic Surgery
DX: G56.02 Carpal tunnel syndrome, left upper limb (principal); K21.9 Gastro-esophageal reflux disease without esophagitis; I25.10 Atherosclerotic heart disease of native coronary artery without angina pectoris; E11.9 Type 2 diabetes mellitus without complications; Z98.61 Coronary angioplasty status; E78.5 Hyperlipidemia, unspecified; Z87.891 Personal history of nicotine dependence; Z79.4 Long term (current) use of insulin; Z79.899 Other long term (current) drug therapy
CPT/HCPCS: 64721; J0665; J0690; J1100; J2250; J2405; J3010

== ENCOUNTER 2024-06-27 12:04 | Day surgery (SDC) | payer OTHER ==
[~2024-06-27] VITALS: Ht 175.3 cm; Wt 83.0 kg
[2024-06-27] MEDS ORDERED: LIDOCAINE W/EPINEPHRINE 1% 20ML VIAL XX ONE (13:00)
[2024-06-27] MEDS ORDERED: SODIUM BICARBONATE 8.4% INJ 50MEQ 50ML VIAL XX ONE (13:00)
[2024-06-27] MEDS ORDERED: BACITRACIN OINTMENT 30GM TUBE As Ordered ONE (14:29)
[2024-06-27 14:38] VITALS: BP 163/72; TEMP 98.4; O2SAT 100
== END 2024-06-27 14:52 | disposition home or self-care (01) ==
LOC: M SDC 12:04
PROVIDERS: ATTEND Orthopaedic Surgery
DX: M65.351 Trigger finger, right little finger (principal); E78.5 Hyperlipidemia, unspecified; K21.9 Gastro-esophageal reflux disease without esophagitis; I10 Essential (primary) hypertension; Z79.82 Long term (current) use of aspirin; Z79.4 Long term (current) use of insulin; Z79.899 Other long term (current) drug therapy; E11.9 Type 2 diabetes mellitus without complications; I25.10 Atherosclerotic heart disease of native coronary artery without angina pectoris; Z87.891 Personal history of nicotine dependence; Z98.61 Coronary angioplasty status

== ENCOUNTER → 2025-01-03 | Outpatient (CLI) | payer OTHER | LOC: M RAD 09:56 | PROVIDERS: ATTEND Nurse Practitioner Family | DX: I65.21 Occlusion and stenosis of right carotid artery (principal); Z95.828 Presence of other vascular implants and grafts ==